=== PATIENT | male | born 1980 | race Two or more races ===

== ENCOUNTER 2018-10-16 07:09 | Emergency (ER) | payer MEDICAID ==
[~2018-10-16] VITALS: Ht 182.9 cm; Wt 79.4 kg
[2018-10-16 07:41] VITALS: BP 18/69
[2018-10-16] MEDS ORDERED: PENICILLIN G PROC & BENZAT 1200000 UNITS/2 ML SYRG IM ONE (08:00)
[2018-10-16 08:05] LABS: Urine WBC None Seen /hpf (0 - 3)
[2018-10-16 08:15] LABS: Urine Bacteria NONE SEEN /hpf (None Seen); Urine Blood Negative /uL (Negative); Urine Specific Gravity 1.028 (1.001-1.035)
== END 2018-10-16 08:49 | disposition home or self-care (01) ==
LOC: ER 07:09
DX: R21 Rash and other nonspecific skin eruption (principal); F17.210 Nicotine dependence, cigarettes, uncomplicated; F12.90 Cannabis use, unspecified, uncomplicated
CPT/HCPCS: 81001; 96372; 99283; J0558